=== PATIENT | male | born 1950 | race Caucasian/White ===

== ENCOUNTER 2021-09-13 09:48 | Outpatient (CLI) | payer MEDICARE, SELFPAY ==
--- NOTE | ~2021-09-13 | MR_ITS ---
EXAMINATION: MR lumbar spine wo con DATE: 09/13/2021 10:25 INDICATION: Lumbar radiculopathy. TECHNIQUE: Magnetic resonance imaging (MRI) of the lumbar spine was performed without intravenous con trast. Sequences included sagittal T2-weighted FSE, sagittal T2-weighted FS FSE, sagittal T1-weighted FSE, and axial T2-weighted FSE. COMPARISON: None FINDINGS: 5 mm retrolisthesis L4 on L5 and 4 mm retrolisthesis L5 on S1. Chronic mild anterior wedging at T11-L 1. Severe disc height loss with fibrovascular degenerative endplate changes at L5-S1. Additional fibr ovascular degenerative endplate changes along the posterior endplates at L4-L5 and L2-L3. Marrow sign al is otherwise normal. Moderate disc height loss at T10-T11 and mild disc height loss at T12-L1 thro ugh L4-L5. The conus medullaris terminates at L1. There is normal signal in the caudal spinal cord. P aravertebral soft tissues are unremarkable. The following disc levels are specifically discussed: T12-L1: Disc is minimally bulging. There is mild left and mild to moderate right facet joint osteoart hritis. There is no neural foraminal stenosis. There is no central canal stenosis. L1-L2: Disc is mildly bulging. There is mild to moderate bilateral facet joint osteoarthritis. There is no neural foraminal stenosis. There is no central canal stenosis. L2-L3: Disc is bulging. There is mild bilateral facet joint osteoarthritis. There is mild bilateral n eural foraminal stenosis. There is mild central canal stenosis. L3-L4: Disc is bulging. There is mild to moderate left and moderate right facet joint osteoarthritis. There is mild bilateral neural foraminal stenosis. There is mild central canal stenosis. L4-L5: Disc is bulging with annular fissure. There is mild to moderate bilateral facet joint osteoart hritis. There is moderate bilateral neural foraminal stenosis. There is mild central canal stenosis. L5-S1: Disc is bulging with annular fissure and superimposed central disc extrusion with disc materia l extending a few millimeters cephalad and caudal to the level of the endplates. There is moderate bi lateral facet joint osteoarthritis. There is moderate bilateral neural foraminal stenosis. There is m ild central canal stenosis. IMPRESSION: 1. Lumbar spondylosis, severe at L5-S1 and otherwise mild. Reviewed, dictated and finalized at location B.
== END 2021-09-13 09:49 | disposition home or self-care (01) ==
PROVIDERS: PCP Internal Medicine; Visit Provider Internal Medicine
DX: M54.16 Radiculopathy, lumbar region (principal); M43.06 Spondylolysis, lumbar region
CPT/HCPCS: 72148

== ENCOUNTER 2025-04-29 01:10 | Day surgery (SDC) | payer MEDICARE, SELFPAY ==
[2025-04-13 15:14] VITALS: BMI 23.2
--- NOTE | 2025-04-13 15:32 | PC.NURSE ---
[facility] has started construction of its new state of the art ER which will open Spring 2026. With this, we anticipate parking may be a challenge for some our surgical patients and families. Parking spaces are limited but are available for all Surgical, obstetrics, and ER patients sharing this lot. If you arrive and find you are having a hard time finding a parking space, please note that we understand the challenges, please drive around the hospital and park near Hospital Entrance 1. When you enter this entrance, you can ask a volunteer to direct or take you back to the surgical waiting area to check in. We appreciate everyone?s understanding of these expected challenges while we build for your future. Report to the Outpatient Waiting Room, entrance under the green pavilion located off [address], at time ___6:30AM___ on date __04/29/25____. Planned Procedure Time: ___8:30AM____.? Time changes happen often and if your time is changed the preop area will call you the afternoon before. - You and your visitor will be asked to self-screen and do not enter if you have any COVID symptoms. Please call surgeon if you need to reschedule. - A mask is optional within the hospital at this time. Patients may have clear liquids (water, carbonated beverages, clear teas, apple juice) until 3 hours prior to surgery (5:30AM) with a maximum of 20 ounces. - No food from midnight until time of surgery and no smoking, or chewing tobacco (or any form of nicotine). No chewing gum, candy or mints. Take only the following medications with a SIP of water on the morning of surgery: NONE DO NOT STOP ANY OF YOUR OTHER PRESCRIPTION MEDICATIONS PRIOR TO SURGERY EXCEPT THE FOLLOWING Hold all vitamins and supplements for 3 days per anesthesiologist.-LAST DOSE 04/25/25 Please no make-up, nail serbian, hairspray, perfume, deodorant, or body powder the day of surgery.? No jewelry (including any body piercings) or valuables the day of surgery, leave them at home.? Please take a shower or bath the night before, or the morning of, surgery with an antibacterial soap.? Wear comfortable, loose fitting clothing.? Children are encouraged to wear pajamas. - Jewelry must be removed prior to entering the operating room.? Rings and piercings that are not removed may be cut off. - The hospital will not accept responsibility for valuables.? - Please leave all valuables, including medications, at home the day of surgery. If you are going home after surgery, a licensed commercial driver's license driver must drive you home.? - NO public transportation without another adult if you receive anesthesia. - We recommend that an adult stay with you for 24 hours following discharge. - We also recommend that you do not drive, make important decision, drink alcoholic beverages, or take any drugs that were not prescribed by your health care provider for at least 24 hours after your discharge time. For Pediatric surgeries, we recommend two adults accompany the child home. Follow any additional instructions given to you from your surgeon. Telephone instructions given to ____PATIENT and asked if any additional questions and then verbalized understanding. Patient advised to call surgeon office or pre surgery nurse liaison [phone] if any additional questions.
--- NOTE | 2025-04-28 16:18 | PM.IMHP2 ---
H&P: HPI History of Present Illness Date/Time: 04/28/25 16:18 Chief Complaint: Right carpal tunnel syndrome Narrative: HPI Comments Details: Patient is a 75-year-old gentleman patient of Dr. Lewis who presents for evaluation of numbness and tingling in the thumb index and long fingers of his right hand. He has similar symptoms on the left but much milder. He saw Osman Kat in April of 2023 and I reviewed his note. Patient had undergone MRI of the cervical spine on April 17, 2023 which demonstrated severe canal and left foraminal stenosis at C5-6 and moderate to severe central canal and right foraminal stenosis at C6-7. There was no signal abnormality in the cervical cord. Patient subsequently saw a neurosurgeon [facility] whose name begins with the letter B and was advised after review of the MRI scan of the cervical spine and his complaints that his hand numbness was not related to his cervical spine. At that visit 2 years ago he was prescribed resting night splints. He does not use them consistently because when he is at a point where he was about to fall asleep his usually too sleepy to remember but he notes that he never has the severe numbness in the morning or wakes up at night if he is wearing the splints. He does have lingering tingling constantly in the tips of the thumb index and long fingers of the right hand and a little bit in the ring finger. If he is not wearing the splints, occasionally he will wake up in the middle the night with the entire right hand very numb and the knee shakes it in moves around in as the blood starts flowing to his right hand he experiences pain in those fingers. The most commonly he has this phenomena on awakening in the morning. He denies any numbness other than in the thumb index and long fingers. He notes that when he is trying to use his fingers to button buttons he can not feel when he is doing. Physical examination He has full range of motion of his wrist and digits in the right hand. He has no redness swelling or warmth and no tenderness in any of the joints of the right hand. He had a negative Tinel's and negative carpal tunnel compression test. He had a positive Phalen's maneuver which caused increased tingling in the index long and thumb on the right. Tinel's over the cubital tunnel was negative no subluxation of the ulnar nerve. No obvious thenar atrophy. He has mild intrinsic atrophy perhaps in viewing the dorsum of his hands symmetrically. No obvious weakness. This degree of atrophy may be consistent with age. He has a 2+ radial artery pulse palpable. On light touch testing he noted slight tingling to light touch to in the thumb index and long fingers. He had normal sensation over the radial and dorsal aspects of his hand and forearm. His 2 point discrimination was 5/greater than 8 mm, 5/greater than 8 mm, 7/greater than 8 mm, 5/5 mm and 5/6 mm in the thumb through small fingers. Range of motion of this gentleman's neck was reduced particularly with extension but also to a moderate degree with lateral rotation to the right and the left. He had no discomfort with these maneuvers. Spurling's maneuver cause no dysesthesias in either arm. Negative Lhermitte's. X-rays X-rays of the right wrist obtained in the office demonstrate moderately severe osteoarthritis changes in the 2nd and 3rd metacarpophalangeal joints and no other abnormalities. Assessment and plan 1. Right carpal tunnel syndrome with constant numbness and marked elevation of 2 point discrimination in ulnar halves of the thumb index and long fingers moderate increased 2 point skin in a kirby the radial half of the long finger. 2. Severe C5-6 and moderately severe C6-7 central canal stenosis with right-sided severe neural foraminal narrowing at C6-7 which would affect the C7 nerve root which correlates with the long finger. Provocative maneuvers of his neck cause no neurologic symptoms today. He has had symptoms for the last 2 years. He had normal light touch sensation to the fingers of his right hand 2 years ago. Now he has constant numbness so he has had worsening of median nerve damage. Two years ago he had a positive Tinel's and positive carpal tunnel compression test over the right median nerve in both of these tests are negative now but his phalan's maneuver positive. I have discussed with him the option of proceeding with right carpal tunnel release. I explained that we could consider obtaining an EMG nerve conduction velocity test to see if there are EMG findings suggesting underlying radiculopathy which would prove that he has the so-called double crush syndrome meaning a combination of radiculopathy and carpal tunnel syndrome both contributing to the numbness and tingling symptoms in his right hand. He has seen the neurosurgeon was not recommended surgical decompression for his severe cervical spinal stenosis. Therefore, if the test showed that he does have element of radiculopathy in addition to the carpal tunnel syndrome, proceeding with carpal tunnel release would still be the logical next step to see how much relief this would give him. If he has worsening numbness in the right hand despite carpal tunnel release and if he begins to lose coordination in his hand or develops ataxia he may need to be seen by the neurosurgeon again for a repeat consideration of his severe cervical spinal stenosis treatment options. I have discussed risks of carpal tunnel release surgery with him in detail. I explained that he may not have full return of normal sensation which is common with 2 point discrimination greater than 8 mm but I would expect he would have at least some return of sensation and it is very likely he will have immediate relief from the painful numbness in the morning when he does not wear his night splint and carpal tunnel release will prevent further damage to the median nerve from compression by the transverse carpal ligament. I have discussed risk of infection the nerve injury and explained the recovery to him. In a month or so he is going to be leaving for [place] where he spends the winter not coming back until September. He would like to try to proceed as soon as possible. We will proceed as discussed. He does see Dr. Rosales next week for a regular checkup. [facility] Surgical History Surgical History (Updated 04/12/25 @ 14:39 by Oralia Jo CMA) History of hernia repair History of appendectomy History of knee surgery knee scope Family History Family History Father Family history of Alzheimer's disease Mother Family history of malignant neoplasm of breast in first degree relative Social History Social History (Updated 04/12/25 @ 14:45 by Delilah Carmona CMA) Smoking status: Never smoker Alcohol intake: current Drinks per week: 10 Substance use: never Lack of Transportation: No Lack of Food: Never True Current Housing: I Have Housing Concerned About Future Housing: No Difficulty Paying Gas/Electric Bills: No Difficulty Paying for Meds: No Currently Unemployed: No Education: Master's Degree or Higher Difficulty w/ Childcare or Family Care: No Living arrangements: with family Additional living arrangements comments: Spiritual care concerns: No Meds Home Medications and Allergies Home Medications ?Medication ?Instructions ?Recorded ?Confirmed ?Type multivitamin (Daily Multi-Vitamin 1 tablet PO DAILY 04/13/25 04/13/25 History tablet) Allergies Allergy/AdvReac Type Severity Reaction Status Date / Time No Known Allergies Allergy Mild Verified 04/13/25 15:13
[2025-04-29] VITALS (7 sets, daily range): BP systolic 91–110; BP diastolic 61–73; PULSE 54–66; RESP 14–20; TEMP 36.2–36.5; O2SAT 99–100
--- OUTSIDE RECORDS SUMMARY | 2025-04-29 01:12 | XMS_ITS | Encounter Summary ---
Author Organization [facility] Address [address] [place] [address] Care Team Providers Care Accountant Property Name Role Phone Colby Lewis MD Primary Care Provider [phone] Filippo Wright MD Unavailable [phone] Reason for Visit * Reason Onset Date Comments Appointment 02/19/2025 Encounter Details Date Type Department Care Team (Late st Contact Info) Description 02/19/2025 Telephone [facility] - [address] [place] [address] Alyx Stoddard Appointment Social History Tobacco Use Types Packs/Day Years Used Date Smoking Tobacco: Never Smokeless Tobacco: Never Alcohol Use Standard Drinks/Week Comments Not Currently 12 (1 standard drink = 0.6 oz pu re alcohol) AUDIT-C Answer Date Recorded Q1: How often do you have a drink containing alcohol? 4 or more times a week 05/26/2021 Q2: How many drinks containi ng alcohol do you have on a typical day when you are drinking? 3 or 4 Frequency of Binge Drinking Not on file 11/2021 PHQ-2 Answer Date Recorded PHQ2 TOTAL SCORE 0 12/30/2020 Sex and Gender Information Value Date Recorded Sex Assigned at Not on file Legal Sex Male 10:25 AM LEGAL JOB TITLES Gender Identity Not on file Sexual Orientation Not on file documented as of this encounter Functional Status * Is person deaf or have serious hearing difficulty? Answer Date of Assessment Author No 10/11/2022 9:01 AM CDT Jamar Ricci RN * Is person blind or have serious difficulty seeing? Answer Date of Assessment Author No 10/11/2022 9:01 AM CDT Jamar Ricci RN * Does person have serious difficulty walking/climbing stairs? Answer Date of Assessment Author No 10/11/2022 9:01 AM CDT Jamar Ricci RN * Does person have difficulty dressing/bathing? Answer Date of Assessment Author No 10/11/2022 9:01 AM CDT Jamar Ricci RN * Does person have difficulty doing errands alone? Answer Date of Assessment Author No 10/11/2022 9:01 AM CDT Jamar Ricci RN documented as of this encounter Mental Status * Does person have difficulty concentrating/remembering/making decisions? Answer Entry Date Author No 10/11/2022 9:01 AM ZAKT Jamar Ricci RN documented in this encounter Miscellaneous Notes * Telephone Encounter - Alyx Stoddard - 02/19/2025 11:23 AM CDT 1st/2nd Attempt lvm on self identified vm and sent pt a my chart msg to call to schedule a follow up appt. As requested below. Message Received: 2 days ago Gisella Sabillon, NADINE sent to Adithya Anglin, NADINE; Alyx Stoddard Needs to reestablish care with an IBD specialist Used to see Deonna but she moved He called me Could you work with the schedulers to find him an appt with peter or adrianne?. No acuna at all.. he is asymptomatic documented in this encounter Plan of Treatment Upcoming Encounters Date Type Department Care Team (Latest Contact Info) Description 05/05/2025 9:30 AM [facility] Hospital Encounter [facility] [address] [place] [phone] Bernardo Izquierdo MD [address] [place] [address] Surgery General 05/05/2025 9:30 AM LEGAL JOB TITLES - 05/05/2025 10:15 AM LEGAL JOB TITLES Surgery [facility]COPY [address] [place] [phone] Bernardo Izquierdo MD [address] [place] [address] COLONOSCOPY SCREEN w/ peter 05/26/2025 8:30 AM LEGAL JOB TITLES Office Visit [facility] - GI [address] [facility], [place] [phone] Conigel-Adrianne Martinez, BIOLOGICAL SCIENCE TECHNICIAN-DIRECTOR OF SEARCH ENGINE MARKETING [address] [place] [address] Scheduled Procedures Name Priority Associated Diagnoses Date/Ti sd COLONOSCOPY SCREEN Ulcerative colitis with complication, unspecified location (HCC) 05/05/2025 9:30 AM LEGAL JOB TITLES documented as of this encounter Goals Goal Patient Goal Type Associated Problems Recent Progress Patient-Stated? Author Safety General On track( 9:18 AM CDT) No Nikia Hanley, NADINE Note: Expected end date: Ongoing Interventions: Your nurse will assess your risk for falls/injury each visit Use appropriate and safe transfer methods Medication Management General On track( 9:18 AM CDT) Nikia Pereira, RN Note: Expected end date: Ongoing Interventions: Take all medications as prescribed Let your doctor know right away about any changes in your medications documented as of this encounter Visit Diagnoses Not on filedocumented in this encounter Additional Health Concerns Infection Onset Date Last Indicated Resolved Time CDIFF Under Investigation 03/03/2025 03/03/2025 7:25 PM CDT documented as of this encounter Care Teams Accountant Property Relationship Specialty Start Date End Date Colby Lewis MD [address] [place] [address] [address] [place] [phone] PCP - General Internal Medicine 09/27/16 Filippo Wright MD [address] [address] [address] [place] [address] Anesthesiology-Pain Management 11/06/21 documented as of this encounter
--- OUTSIDE RECORDS SUMMARY | 2025-04-29 01:12 | XMS_ITS | Encounter Summary ---
Author Organization [facility] Address [address] [place] [address] Care Team Providers Care Supervisor Weaving Name Role Phone oClby Lewis MD Primary Care Provider [phone] Filippo Wright MD Unavailable [phone] Reason for Visit * Reason Comments Refill Request Encounter Details Date Type Department Care Team (Late st Contact Info) Description 05/22/2022 Refill [facility] - GI [address] [place] [address], [place] [address] Elsy Ying MD [address] [place] [address] [place] [phone] Refill Request Social History Tobacco Use Types Packs/Day Years Used Date Smoking Tobacco: Never Smokeless Tobacco: Never Alcohol Use Standard Drinks/Week Comments Yes 12 (1 standard drink = 0.6 oz [...] on file Legal Sex Male 10:25 AM QA ARCHITECT Gender Identity Not on file Sexual Orientation Not on file documented as of this encounter Plan of Treatment Upcoming Encounters Date Type Department Care Team (Latest Contact Info) Description 05/05/2025 9:30 AM QA ARCHITECT Hospital Encounter [facility] [address] [place] [address] Bernardo Izquierdo MD [address] [place] [phone] Surgery General 05/05/2025 9:30 AM QA ARCHITECT - 05/05/2025 10:15 AM QA ARCHITECT Surgery [facility] [address] [place] [address] Bernardo Izquierdo MD [address] [place] [phone] COLONOSCOPY SCREEN w/ peter 05/26/2025 8:30 AM QA ARCHITECT Office Visit [facility] - GI [address] [facility] [place] [phone] Adrianne Babin, END WORKER-FINISHING OPERATOR [address] [place] [phone] Scheduled Procedures Name Priority Associated Diagnoses Date/Ti me COLONOSCOPY SCREEN Ulcerative colitis with complication, unspecified location (HCC) 05/05/2025 9:30 AM QA ARCHITECT documented as of this encounter Goals Goal Patient Goal Type Associated Problems Recent Progress Patient-Stated? Author Safety General On track( 025 9:18 AM CDT) Nikia Pereira RN Note: Expected end date: Ongoing Interventions: Your nurse will assess your risk for falls/injury each visit Use appropriate and safe transfer methods Medication Management General On track( 025 9:18 AM CDT) Nikia Pereira RN Note: Expected end date: Ongoing Interventions: Take all medications as prescribed Let your doctor know right away about any changes in your medications documented as of this encounter Visit Diagnoses Not on filedocumented in this encounter Additional Health Concerns Infection Onset Date Last Indicated Resolved Time CDIFF Under Investigation 03/03/2025 03/03/2025 7:25 PM CDT documented as of this encounter Care Teams Supervisor Weaving Relationship Specialty Start Date End Date Colby Lewis MD [facility] [address] [address] PCP - General Internal Medicine 09/27/16 Filippo Wright MD [facility] [address] [address] Anesthesiology-Pain Management 11/06/21 documented as of this encounter
--- OUTSIDE RECORDS SUMMARY | 2025-04-29 01:12 | XMS_ITS | Encounter Summary ---
Author Organization [facility] Address [address] [facility] [place] [address] Care Team Providers Care Joy Operator Name Role Phone Colby Lewis MD Primary Care Provider [phone] Filippo Wright MD Unavailable [phone] Encounter Details Date Type Department Care Team (Late st Contact Info) Description 11/06/2021 Telephone [facility] - GI [address] [facility] [place] [address] Yayd Logan RN Social History Tobacco Use Types Packs/Day Years [...] on file Legal Sex Male 10:25 AM COPPER PLATER Gender Identity Not on file Sexual Orientation Not on file documented as of this encounter Plan of Treatment Upcoming Encounters Date Type Department Care Team (Latest Contact Info) Description 05/05/2025 9:30 AM COPPER PLATER Hospital Encounter [facility] [address] [place] [phone] Bernardo Izquierdo MD [address] [place] [address] Surgery General 05/05/2025 9:30 AM COPPER PLATER - 05/05/2025 10:15 AM COPPER PLATER Surgery [facility] [address] [place] [address] Bernardo Izquierdo MD [address] [place] [address] COLONOSCOPY SCREEN w/ peter 05/26/2025 8:30 AM COPPER PLATER Office Visit [facility] - GI [address] [facility] [place] [phone] Adrianne Babin, RADIO STATION AUDIO ENGINEER-RESIDENTIAL LEASING MANAGER [address] [place] [phone] Scheduled Procedures Name Priority Associated Diagnoses Date/Ti ky COLONOSCOPY SCREEN Ulcerative colitis with complication, unspecified location (HCC) 05/05/2025 9:30 AM COPPER PLATER documented as of this encounter Goals Goal Patient Goal Type Associated Problems Recent Progress Patient-Stated? Author Safety General On track( 9:18 AM CDT) Nikia Pereira, NADINE Note: Expected end date: Ongoing Interventions: [...] documented as of this encounter Care Teams Joy Operator Relationship Specialty Start Date End Date Colby Lewis MD [facility] [address] [address] [place] [address] PCP - General Internal Medicine 09/27/16 Filippo Wright MD [address] [place] [address] [address] [place] [address] Anesthesiology-Pain Management 11/06/21 documented as of this encounter
--- OUTSIDE RECORDS SUMMARY | 2025-04-29 01:12 | XMS_ITS | Clinical Summary ---
Author Organization [facility] Address [address] [place] [id number] Care Team Providers Care Personal Banker Name Role Phone Unavailable Primary Care Provider Unavailabl e Social History Tobacco Use Types Packs/Day Years Used Date Smoking Tobacco: Never Assessed Sex and Gender Information Value Date Recorded Sex Assigned at Not on file Legal Sex Male 7:24 PM CDT Gender Identity Not on file Sexual Orientation Not on file Plan of Treatment Health Maintenance Due Date Last Done Comments Colorectal Cancer Screening Colonoscopy (10 Years) 1950 Hepatitis C 1969 DTaP, Tdap and Td Vaccines ( 1 - Tdap) 1970 Pneumococcal Vaccine: 50+ Ye ars (1 of 1 - PCV) 2001 Zoster Vaccines (1 of 2) 2001 COVID-19 Vaccine ( - 2024-2 6 season) 2025 Influenza Adult (#1) 2025 RSV Immunization or 60+ Years (1 - 1-dose 75+ series) 2026 Hepatitis A Vaccines Aged Out No long er eligible based on patient's age to complete this topic Meningococcal B Vaccine Aged Out No l onger eligible based on patient's age to complete this topic Meningococcal Vaccine Aged Out No catia juany eligible based on patient's age to complete this topic RSV Immunizations Under 20 Months Aged Out No longer eligible based on patient's age to complete this topic
--- OUTSIDE RECORDS SUMMARY | 2025-04-29 01:12 | XMS_ITS | Clinical Summary ---
Author Organization [facility] Address [address] [facility] [place] [address] Care Team Providers Care Manager Of Revenue Name Role Phone Colby Lewis MD Primary Care Provider Filippo Wright MD Unavailable [phone] Source Comments [facility],non-owned Affiliates and Associated Physician Practices is amultiple site organization consisting of ambulatory clinics and hospital sitesin [place], [place], [place] and [place]. This disclosure is being madepursuant to the Care Everywhere program and may not contain all information available regarding this patient. Last updated 18.[facility] Allergies No known active allergies Medications * Be aware that medications may not be up to date on this document. Alwaysverify current medications with the patient. Bismuth Subsalicylate (BISMUTH PO) Take by mouth as needed Active Multiple Vitamins-Minerals (ZINC PO) Take by mouth once daily Active econazole nitrate (Spectazole) 1 % creamIndications:O nychomycosis APPLY TO TOENAILS AND FEET 1 TO 2 TIMES DAILY 30 g 5 4 Active tadalafil (Cialis) 20 MG tablet Take 1 (one) tablet by mouth once daily as needed 5 Active AMINO ACIDS PO Take by mouth once daily Active Protein Take by mouth once daily Active polyethylene glycol (Golytely) solution Drink half of prep solution at 5pm the night before colonoscopy. Finish the prep at 4am the day of test. 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 Actinic keratosis 05/02/2020 H/O nummular eczema 05/02/2020 Onychomycosis 05/02/2020 Lentigines 05/02/2020 Xerosis cutis 05/02/2020 Seborrheic keratosis 05/26/2018 History of nonmelanoma skin cancer 05/26/2018 Joint pain 09/18/2013 Overview (05/02/2020): Overview: Clinic note : mike damon: check RAFFY, uric acid, b12, folate, labs, testosterone tsh 5.64, T4 5.5, vit d 23 07/2013: normal cmp, tsh 7.02, t4 0.9, nl cbc, hep b rodriguez neg, hep c neg, testosterone normal, psa normal 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 Symptoms better with align, dietary changes but positive fecal inflammatorymarkers 2011 Colonoscopy abnormal 05/29/2012: bx at [facility]: TI: no path diagnosis Right colon: acute and CI no dysplasia Left colon: acute and CI, no dysplasia TC: Acute and CI, no dysplasia The colon shows no architectural abnormality ESR 70, CRP negative 04/2012: Stool calprotectin 235, lactoferrin positive 2017: colon: normal colon, erythema in TI, hemorrhoids, diverticulosis Final Diagnosis 1. Ascending colon, biopsy: -- Mild chronic inflammationand crypt atrophy. 2. Terminal ileum, biopsy: -- Moderate acute and chronic inflammation 3. Transverse colon, biopsy: -- Mild chronic inflammation and crypt atrophy 4. Descending colon, biopsy: -- Mild chronic inflammation with thickened subepithelial collagen table 5. Rectosigmoid colon, biopsy: -- Mild chronic inflammation Encounters Date Type Department Care Team Description 04/21/2025 Patient Outreach [facility] [address] [place] [address] Adrianne Mcleod RN 03/03/2025 9:30 AM CDT Office Visit [facility] [address] [place] [phone] Adrianne Babin, ROLLER DIE CUTTING MACHINE OPERATOR-INSURANCE CONSULTANT Ulcerative pancolitis (HCC) (Primary Dx); Intestinal malabsorption, unspecified type (HCC); Immunosuppression due to drug therapy (HCC); Encounter for screening for other viral diseases 03/03/2025 Travel 02/19/2025 Telephone [facility] - [address] [place] [phone] Alyx Stoddard Appointment from Last 3 Months Immunizations Immunization Administration Dates Next Due INFLUENZA VACCINE 03/11/2014 INFLUENZA VACCINE, HIGH-DOSE , QUADR. (FLUZONE HIGH-DOSE QUADRIVALENT; 65Y+), 0.7 ML (HD-IIV4) 03/11/2014 TDAP (7yrs+) 11/28/2017 Family History Medical History Relation Name Comments None Known Brother None Known Father None Known Maternal Aunt None Known Maternal Grandfather None Known Maternal Grandmother None Known Maternal Uncle None Known Mother None Known Paternal Aunt None Known Paternal Grandfather None Known Paternal Grandmother None Known Paternal Uncle None Known Sister Asthma Neg Hx CVA Neg Hx Cancer - Breast Neg Hx Cancer - Other Neg Hx Cancer - Skin, Melanoma Neg Hx Cancer - Skin, Non Melanoma Neg Hx Eczema Neg Hx Hemophilia Neg Hx Psoriasis Neg Hx Relation Name Status Comments Brother Father Maternal Aunt Maternal Grandfather Maternal Grandmother Maternal Uncle Mother Paternal Aunt Paternal Grandfather Paternal Grandmother Paternal Uncle Sister Social History Tobacco Use Types Packs/Day Years Used Date Smoking Tobacco: Never Smokeless Tobacco: Never Alcohol Use Standard Drinks/Week Comments Yes 12 (1 standard drink = 0.6 oz pu re alcohol) 4-5 times per week, beer AUDIT-C Answer Date Recorded Q1: How often [...] on file Legal Sex Male 10:25 AM HOME HEALTH RN Gender Identity Not on file Sexual Orientation Not on file Last Filed Vital Signs Vital Sign Reading Time Taken Comments Blood Pressure 118/82 03/03/2025 9:23 AM CDT Pulse 66 03/03/2025 9:23 AM CDT Temperature 36.6 C (97.9 F) 03/03/2025 9:23 AM CDT Respiratory Rate 15 10/11/2022 9:30 AM CDT Oxygen Saturation 100% 03/03/2025 9:23 AM CDT Inhaled Oxygen Concentration - - Weight 78.7 kg (173 lb 9.6 oz) 03/03/2025 9:23 A M CDT Height 188 cm (6' 2) 03/03/2025 9:23 AM CDT Body Mass Index 22.29 03/03/2025 9:23 AM CDT Plan of Treatment Upcoming Encounters Date Type Department Care Team (Latest Contact Info) Description 05/05/2025 9:30 AM HOME HEALTH RN Hospital Encounter [facility] [address] [place] [address] Bernardo Izquierdo MD [address] [place] [phone] Surgery General 05/05/2025 9:30 AM HOME HEALTH RN - 05/05/2025 10:15 AM HOME HEALTH RN Surgery [facility] [address] [place] [address] Bernardo Izquierdo MD [address] [place] [phone] COLONOSCOPY SCREEN w/ peter 05/26/2025 8:30 AM HOME HEALTH RN Office Visit [facility] - [facility] [address] [facility] [place] [address] Adrianne Babin APRN-INSURANCE CONSULTANT [address] [place] [address] Scheduled Procedures Name Priority Associated Diagnoses Date/Ti me COLONOSCOPY SCREEN Ulcerative colitis with complication, unspecified location (HCC) 05/05/2025 9:30 AM HOME HEALTH RN Health Maintenance Due Date Last Done Comments COLOGUARD (AGES 45-75) - COLON CA SCREENING 1950 CT COLONOGRAPHY - COLON CA SCREENING 1950 FIT - COLON CA SCREENING 1950 FLEX SIG - COLON CA SCREENING 1950 MEDICARE AWV 12 MONTHS 1950 COVID-19 VACCINE (#1) 1956 PNEUMOCOCCAL VACCINE 50+ (1 of 2 - PCV) 1970 ZOSTER VACCINE (1 of 2) 1970 Respiratory Syncytial Virus (RSV) Vaccine Pt: or over 60 yrs (1 - Risk 50-74 years 1-dose series) 2001 LIPID TESTING 06/28/2021 06/28/2016 DEPRESSION SCREENING 05/20/2024 INFLUENZA VACCINE (#1) 2025 03/11/2014, 2013 DTAP/TDAP/TD VACCINES (2 - Td or Tdap) 11/29/2027 11/28/2017 COLON MONITORING 10/11/2032 10/11/2022, , 06/09/2019, Additional history exists COLONOSCOPY - COLON CA SCREENING 10/11/2032 10/11/2022, 10/11/2022, 06/09/2019, Additional history exists Colorectal Cancer Screening 10/11/2032 HEPATITIS C SCREENING Completed 05/27/2019, 020 HEPATITIS B VACCINE Aged Out No longe r eligible based on patient's age to complete this topic HIB VACCINE Aged Out No longer eligi ble based on patient's age to complete this topic HPV VACCINE Aged Out No longer eligi ble based on patient's age to complete this topic MENINGOCOCCAL (Group B) VACCINE SHARED DECISION-MAKING Aged Out No longer eligible based on patient's age to complete this topic MENINGOCOCCAL GROUPS A/C/Y/W VACCINE Aged Out No longer eligible based on patient's age to complete this topic Goals Goal Patient Goal Type Associated Problems Recent Progress Patient-Stated? Author Safety General On track( 025 9:18 AM CDT) No Nikia Hanley RN Note: Expected end date: Ongoing Interventions: Your nurse will assess your risk for falls/injury each visit Use appropriate and safe transfer methods Medication Management General On track( 9:18 AM CDT) No Nikia Hanley RN Note: Expected end date: Ongoing Interventions: Take all medications as prescribed Let your doctor know right away about any changes in your medications Procedures Procedure Name Priority Date/Time Associated Diagnosis Comments HEPATITIS B SURFACE ANTIBODY QUANT Routine 03/19/2025 9:32 AM CDT Ulcerative pancolitis (HCC) Intestinal malabsorption, unspecified type (HCC) Immunosuppression due to drug therapy (HCC) Encounter for screening for other viral diseases HEPATITIS B CORE ANTIBODY TOTAL Routine 03/19/2025 9:31 AM CDT Ulcerative pancolitis (HCC) Intestinal malabsorption, unspecified type (HCC) Immunosuppression due to drug therapy (HCC) Encounter for screening for other viral diseases HEPATITIS B SURFACE ANTIGEN W RFLX CONFIRMATION Routine 03/19/2025 9:31 AM CDT Ulcerative pancolitis (HCC) Intestinal malabsorption, unspecified type (HCC) Immunosuppression due to drug therapy (HCC) Encounter for screening for other viral diseases QUANTIFERON-TB GOLD PLUS 1-TUBE Routine 03/19/2025 9:31 AM CDT Ulcerative pancolitis (HCC) Intestinal malabsorption, unspecified type (HCC) Immunosuppression due to drug therapy (HCC) VITAMIN B12 Routine 03/19/2025 9:31 AM CDT Ulcerative pancolitis (HCC) Intestinal malabsorption, unspecified type (HCC) Immunosuppression due to drug therapy (HCC) VITAMIN D 25-HYDROXY Routine 03/19/2025 9:31 AM CDT Ulcerative pancolitis (HCC) Intestinal malabsorption, unspecified type (HCC) Immunosuppression due to drug therapy (HCC) FOLATE Routine 03/19/2025 9:31 AM CDT Ulcerative pancolitis (HCC) Intestinal malabsorption, unspecified type (HCC) Immunosuppression due to drug therapy (HCC) IRON + TIBC + FERRITIN Routine 9:31 AM CDT Ulcerative pancolitis (HCC) Intestinal malabsorption, unspecified type (HCC) Immunosuppression due to drug therapy (HCC) C-REACTIVE PROTEIN Routine 03/19/2025 9: 31 AM CDT Ulcerative pancolitis (HCC) Intestinal malabsorption, unspecified type (HCC) Immunosuppression due to drug therapy (HCC) COMPREHENSIVE METABOLIC PANEL Routine 03/19/2025 9:31 AM CDT Ulcerative pancolitis (HCC) Intestinal malabsorption, unspecified type (HCC) Immunosuppression due to drug therapy (HCC) CBC W AUTO DIFFERENTIAL Routine 03/19/20 9:31 AM CDT Ulcerative pancolitis (HCC) Intestinal malabsorption, unspecified type (HCC) Immunosuppression due to drug therapy (HCC) GASTROINTESTINAL PATHOGEN PANEL (GPP) PCR Routine 03/19/2025 9:31 AM CDT Ulcerative pancolitis (HCC) Intestinal malabsorption, unspecified type (HCC) Immunosuppression due to drug therapy (HCC) ENDOSCOPY, COLON, SCREENING Routine 10/11/2022 7:26 AM CDT HEPATITIS C ANTIBODY Routine 05/27/2019 12:00 PM HOME HEALTH RN Ulcerative pancolitis without complication Encounter for screening for other viral diseases LIPID PROFILE Routine 06/28/2016 10:17 AM HOME HEALTH RN from Last 3 Months or Most Recently Relevant to Health Maintenance Results * (ABNORMAL) HEPATITIS B SURFACE ANTIBODY QUANT (03/19/2025 9:32 AM CDT) Hepatitis B Virus Surface Antibody Quantitative <3.5(L) Immunity>1 0 mIU/mL [facility] INSURANCE BILL Comment: Status of Immunity Anti-HBs Level Inconsistent with Immunity 0.0 - 10.0 Consistent with Immunity >10.0 Blood BLOOD SPECIMEN / Unknown 03/19/2025 9:32 AM CDT 03/19/2025 Narrative [facility] INSURANCE BILL - 03/20/2025 6:09 AM CDT Performed at: [address] [place] [id number] Review Engineer: Jagdeep Kenyon PhD, Phone: [phone] us Adrianne Babin ROLLER DIE CUTTING MACHINE OPERATOR-INSURANCE CONSULTANT LAB - SEROLOGY O RDERABLES Final Result [facility] INSURANCE BILL [address] [place] [address] * QUANTIFERON-TB GOLD PLUS 1-TUBE (03/19/2025 9:31 AM CDT) [facility] QuantiFERON Incubation Incubation performed. [facility] INSURANCE BILL Quantiferon-TB Gold Plus Negative Negative [facility] INSURANCE BILL Comment: No response to M tuberculosis antigens detected. Infection with M tuberculosis is unlikely, but high risk individuals should be considered for additional testing (ATS/IDSA/CDC Clinical Practice Guidelines, 2017). The reference range is an Antigen minus Nil result of <0.35 IU/mL. Chemiluminescence immunoassay methodology Performed at: [address] [place] [id number] Review Engineer: Jagdeep Kenyon PhD, Phone: [phone] QuantiFERON Criteria Comment [facility] INSURANCE BILL Comment: QuantiFERON-TB Gold Plus is a qualitative indirect test for M tuberculosis infection (including disease) and is intended for use in conjunction with risk assessment, radiography, and other medical and diagnostic evaluations. The QuantiFERON-TB Gold Plus result is determined by subtracting the Nil value from either TB antigen (Ag) value. The Mitogen tube serves as a control for the test. QuantiFERON TB1 Ag Value 0.04 IU/mL [facility] INSURANCE BILL QuantiFERON TB2 Ag Value 0.08 IU/mL [facility] INSURANCE BILL QuantiFERON Nil Value 0.06 IU/mL [facility] INSURANCE BILL QuantiFERON Mitogen Value >10.00 IU/mL [facility] INSURANCE BILL Blood BLOOD SPECIMEN / Unknown 03/19/2025 9:31 AM CDT 03/19/2025 Narrative [facility] INSURANCE BILL - 03/22/2025 1:09 PM HOME HEALTH RN Performed at: 01 - [facility] [address] [place], [place] [id number] Review Engineer: Jagdeep Kenyon PhD, Phone: [phone] Adrianne Rubi-Attewhui ROLLER DIE CUTTING MACHINE OPERATOR-INSURANCE CONSULTANT LAB - CHEMISTRY ORDERABLES Final Result [facility] INSURANCE BILL [address] [place] [address] * GASTROINTESTINAL PATHOGEN PANEL (GPP) PCR (03/19/2025 9:31 AM CDT) Pathologist [facility] Campylobacter PCR Not Detected Not Detected [facility] INSURANCE BILL C difficile Toxin A/B PCR Not Detected Not Detected [facility] INSURANCE BILL Plesiomonas shigelloides PCR Not Detected Not Detected [facility] INSURANCE BILL Salmonella PCR Not Detected Not Detected [facility] INSURANCE BILL Vibrio PCR Not Detected Not Detected [facility] INSURANCE BILL Vibrio cholerae PCR Not Detected Not Detected [facility] INSURANCE BILL Yersinia enterocolitica PCR Not Detected Not Detected [facility] INSURANCE BILL Enteroaggregative E coli (EAEC) PCR Not Detected Not Detected [facility] INSURANCE BILL Enteropathogenic E coli (EPEC) PCR Not Detected Not Detected [facility] INSURANCE BILL Enterotoxigenic E coli (ETEC) PCR Not Detected Not Detected [facility] INSURANCE BILL Shiga-Like Toxin-Producing E coli (STEC) stx1/stx2 Not Detected Not Detected [facility] INSURANCE BILL E coli O157 PCR Not applicable Not Detected [facility] INSURANCE BILL Shigella/Enteroinvas javier E coli PCR Not Detected Not Detected [facility] INSURANCE BILL Cryptosporidium PCR Not Detected Not Detected [facility] INSURANCE BILL Cyclospora cayetanensis PCR Not Detected Not Detected [facility] INSURANCE BILL Entamoeba histolytica PCR Not Detected Not Detected [facility] INSURANCE BILL Giardia lamblia PCR Not Detected Not Detected [facility] INSURANCE BILL Adenovirus F 40/41 Not Detected Not Detected [facility] INSURANCE BILL Astrovirus PCR Not Detected Not Detected [facility] INSURANCE BILL Norovirus GI/GII PCR Not Detected Not Detected [facility] INSURANCE BILL Rotavirus A PCR Not Detected Not Detected [facility] INSURANCE BILL Sapovirus PCR Not Detected Not Detected [facility] INSURANCE BILL Stool STOOL SPECIMEN / Unknown 03/19/2025 9:31 AM CDT 03/19/2025 Narrative [facility] INSURANCE BILL - 03/21/2025 6:42 AM HOME HEALTH RN Performed at: 01 - [address] [id number] Review Engineer: Zachary Gardner MD, Phone: [phone] Adrianne Babin ROLLER DIE CUTTING MACHINE OPERATOR-INSURANCE CONSULTANT LAB - MICROBIOLO GY ORDERABLES Final Result Performing Organization Address [facility] de Phone Number [facility] INSURANCE BILL [address] [place] [address] * (ABNORMAL) IRON + TIBC + FERRITIN (03/19/2025 9:31 AM CDT) TIBC 232(L) 250 - 450 ug/dL [facility] INSURANCE BILL UIBC 144 111 - 343 ug/dL [facility] INSURANCE BILL Iron 88 38 - 169 ug/dL [facility] INSURANCE BILL Iron Saturation 38 15 - 55 % [facility] INSURANCE BILL Ferritin 156 30 - 400 ng/mL [facility] INSURANCE BILL Blood BLOOD SPECIMEN / Unknown 03/19/2025 9:31 AM CDT 03/19/2025 Narrative [facility] INSURANCE BILL - 03/20/2025 8:11 AM CDT [facility]formed at: [facility] [address] [place], [place] [id number] Review Engineer: Jagdeep Kenyon PhD, Phone: [phone] us Adrianne Babin ROLLER DIE CUTTING MACHINE OPERATOR-INSURANCE CONSULTANT LAB - CHEMISTRY ORDERABLES Final Result Performing Organization Address [facility] de Phone Number [facility] INSURANCE BILL [address] [place] [address] * C-REACTIVE PROTEIN (03/19/2025 9:31 AM CDT) C-Reactive Protein 4 0 - 10 mg/L [facility] INSURANCE BILL Blood BLOOD SPECIMEN / Unknown 03/19/2025 9:31 AM CDT 03/19/2025 Narrative [facility] INSURANCE BILL - 03/20/2025 8:11 AM CDT Performed at: [address] [id number] Review Engineer: Jagdeep Kenyon PhD, Phone: [phone] Adrianne Babin ROLLER DIE CUTTING MACHINE OPERATOR-INSURANCE CONSULTANT LAB - CHEMISTRY ORDERABLES Final Result [facility] INSURANCE BILL [address] [place] [address] * VITAMIN D 25-HYDROXY (03/19/2025 9:31 AM CDT) Vitamin D, 25 Hydroxy 37.5 30.0 - 100.0 ng/mL [facility] INSURANCE BILL Comment: Vitamin D deficiency has been defined by the [place] of Medicine and an Endocrine Society practice guideline as a level of serum 25-OH vitamin D less than 20 ng/mL (1,2). The Endocrine Society went on to further define vitamin D insufficiency as a level between 21 and 29 ng/mL (2). 1. IOM ([place] of Medicine). 2010. Dietary reference intakes for calcium and D. [place]: The National Academies Press. 2. Katt MF, Merna GALLEGOS, [place], et al. Evaluation, treatment, and prevention of vitamin D deficiency: an Endocrine Society clinical practice guideline. JCEM. 2010; 96(7):1911-30. Blood BLOOD SPECIMEN / Unknown 03/19/2025 9:31 AM CDT 03/19/2025 Narrative [facility] INSURANCE BILL - 03/20/2025 7:09 AM CDT Performed at: [address] [id number] Review Engineer: Jagdeep Kenyon PhD, Phone: [phone] Adrianne Babin ROLLER DIE CUTTING MACHINE OPERATOR-INSURANCE CONSULTANT LAB - CHEMISTRY ORDERABLES Final Result [facility] INSURANCE BILL [address] [place] [address] * (ABNORMAL) CBC W/ DIFFERENTIAL (03/19/2025 9:31 AM CDT) WBC 7.3 3.4 - 10.8 x10E3/uL [facility] INSURANCE BILL RBC 4.19 4.14 - 5.80 x10E6/uL [facility] INSURANCE BILL Hemoglobin 14.1 13.0 - 17.7 g/dL [facility] INSURANCE BILL Hematocrit 42.5 37.5 - 51.0 % [facility] INSURANCE BILL MCV 101(H) 79 - 97 fL [facility] INSURANCE BILL MCH 33.7(H) 26.6 - 33.0 pg [facility] INSURANCE BILL MCHC 33.2 31.5 - 35.7 g/dL [facility] INSURANCE BILL RDW 12.3 11.6 - 15.4 % [facility] INSURANCE BILL Platelet Count 294 150 - 450 x10E3/uL [facility] INSURANCE BILL Granulocytes % 62 Not Estab. % [facility] INSURANCE BILL Lymphocytes % 23 Not Estab. % [facility] INSURANCE BILL Monocytes % 10 Not Estab. % [facility] INSURANCE BILL Eosinophils % 4 Not Estab. % [facility] INSURANCE BILL Basophils % 1 Not Estab. % [facility] INSURANCE BILL Granulocytes Absolute 4.5 1.4 - 7.0 x10E3/uL [facility] INSURANCE BILL Lymphocytes Absolute 1.7 0.7 - 3.1 x10E3/uL [facility] INSURANCE BILL Monocytes Absolute 0.7 0.1 - 0.9 x10E3/uL [facility] INSURANCE BILL Eosinophils Absolute 0.3 0.0 - 0.4 x10E3/uL [facility] INSURANCE BILL Basophils Absolute 0.1 0.0 - 0.2 x10E3/uL [facility] INSURANCE BILL Immature Granulocytes 0 Not Estab. % [facility] INSURANCE BILL Immature Granulocytes Absolute 0.0 0.0 - 0.1 x10E3/uL [facility] INSURANCE BILL Blood BLOOD SPECIMEN / Unknown 03/19/2025 9:31 AM CDT 03/19/2025 Narrative [facility] INSURANCE BILL - 03/20/2025 7:09 AM CDT Performed at: 01 - [address] [id number] Review Engineer: Jagdeep Kenyon PhD, Phone: [phone] us Adrianne Babin ROLLER DIE CUTTING MACHINE OPERATOR-INSURANCE CONSULTANT LAB - HEMATOLOGY ORDERABLES Final Result [facility] INSURANCE BILL [address] [place] [address] * (ABNORMAL) COMPREHENSIVE METABOLIC PANEL (03/19/2025 9:31 AM CDT) [facility] Glucose 103(H) 70 - 99 mg/dL [facility] INSURANCE BILL BUN 15 8 - 27 mg/dL [facility] INSURANCE BILL Creatinine 1.13 0.76 - 1.27 mg/dL [facility] INSURANCE BILL eGFR by CKD-EPI 69 >59 mL/min/1.7 3 [facility] INSURANCE BILL BUN/Creatinine Ratio 13 10 - 24 [facility] INSURANCE BILL Sodium 140 134 - 144 mmol/L [facility] INSURANCE BILL Potassium 4.4 3.5 - 5.2 mmol/L [facility] INSURANCE BILL Chloride 104 96 - 106 mmol/L [facility] INSURANCE BILL CO2 23 20 - 29 mmol/L [facility] INSURANCE BILL Calcium 8.9 8.6 - 10.2 mg/dL [facility] INSURANCE BILL Protein Total 6.8 6.0 - 8.5 g/dL [facility] INSURANCE BILL Albumin 3.9 3.8 - 4.8 g/dL [facility] INSURANCE BILL Globulin Total 2.9 1.5 - 4.5 g/dL [facility] INSURANCE BILL Bilirubin Total 0.5 0.0 - 1.2 mg/dL [facility] INSURANCE BILL Alkaline Phosphatase 44(L) 47 - 123 IU/L [facility] INSURANCE BILL AST 18 0 - 40 IU/L [facility] INSURANCE BILL ALT 13 0 - 44 IU/L [facility] INSURANCE BILL Blood BLOOD SPECIMEN / Unknown 03/19/2025 9:31 AM CDT 03/19/2025 Narrative [facility] INSURANCE BILL - 03/20/2025 7:09 AM CDT Performed at: 01 - [address] [id number] Review Engineer: Jagdeep Kenyon PhD, Phone: [phone] Adrianne Babin ROLLER DIE CUTTING MACHINE OPERATOR-INSURANCE CONSULTANT LAB - CHEMISTRY ORDERABLES Final Result [facility] INSURANCE BILL [address] [place] [address] * HEPATITIS B CORE ANTIBODY TOTAL (03/19/2025 9:31 AM CDT) Hepatitis B Core Virus Antibody Total Negative Negative [facility] INSURANCE BILL Blood BLOOD SPECIMEN / Unknown 03/19/2025 9:31 AM CDT 03/19/2025 Narrative [facility] INSURANCE BILL - 03/20/2025 7:09 AM CDT Performed at: [address] [id number] Review Engineer: Jagdeep Kenyon PhD, Phone: [phone] us Adrianne Babin ROLLER DIE CUTTING MACHINE OPERATOR-INSURANCE CONSULTANT LAB - CHEMISTRY ORDERABLES Final Result Performing Organization Address [facility]/ZIP Co de Phone Number [facility] INSURANCE BILL [address] [place] [address] * HEPATITIS B SURFACE ANTIGEN W RFLX CONFIRMATION (03/19/2025 9:31 AM CDT) Hepatitis B Virus Surface Antigen Negative Negative [facility] INSURANCE BILL Blood BLOOD SPECIMEN / Unknown 03/19/2025 9:31 AM CDT 03/19/2025 Narrative [facility] INSURANCE BILL - 03/20/2025 7:09 AM CDT Performed at: [address] [id number] Review Engineer: Jagdeep Kenyon PhD, Phone: [phone] us Adrianne Babin ROLLER DIE CUTTING MACHINE OPERATOR-INSURANCE CONSULTANT LAB - CHEMISTRY ORDERABLES Final Result Performing Organization Address City/[facility]/ZIP Co de Phone Number [facility] INSURANCE BILL [address] [place] [address] * FOLATE (03/19/2025 9:31 AM CDT) [facility] Folate 12.2 >3.0 ng/mL [facility] INSURANCE BILL Comment: A serum folate concentration of less than 3.1 ng/mL is considered to represent clinical deficiency. Blood BLOOD SPECIMEN / Unknown 03/19/2025 9:31 AM CDT 03/19/2025 Narrative [facility] INSURANCE BILL - 03/20/2025 9:10 AM CDT Performed at: [address] [place] [id number] Review Engineer: Jagdeep Kenyon PhD, Phone: [phone] Adrianne Babin ROLLER DIE CUTTING MACHINE [facility] LAB - CHEMISTRY ORDERABLES Final Result Performing Organization Address [facility] Phone Number [facility] INSURANCE BILL [address] [place] [address] * VITAMIN B12 (03/19/2025 9:31 AM CDT) [facility] Vitamin B12 419 232 - 1,245 pg/mL [facility] [facility] INSURANCE BILL Blood BLOOD SPECIMEN / Unknown 03/19/2025 9:31 AM CDT 03/19/2025 Narrative [facility] INSURANCE BILL - 03/20/2025 8:11 AM CDT Performed at: [address] [id number] Review Engineer: Jagdeep Kenyon PhD, Phone: [phone] Adrianne Babin ROLLER DIE CUTTING MACHINE [facility] - CHEMISTRY ORDERABLES Final Result Performing Organization Address [facility] Co de Phone Number [facility] INSURANCE BILL [address] [place] [address] * ENDOSCOPY, COLON, SCREENING (10/11/2022 7:26 AM CDT) [facility] Report Endoscopy POC Endoscopy Department Report _ Patient Name: Joseph Alex Procedure Date: 10/11/2022 7:26 AM Date of : 1950 Classification: Outpatient Gender: Male Ethnicity: Not or Race: White _ Providers: Elsy Ying MD, Brandon Bauer (Fellow) Referring MD: Colby Lewis MD (Referring MD) Procedure: Colonoscopy Indications: Follow-up of ulcerative colitis Medications: Monitored Anesthesia Care Patient Profile: UC since 2011, intermittent budesonide Description of Procedure: Pre-Anesthesia Assessment: - Prior to the procedure, a History and Physical was performed, and patient medications and allergies were reviewed. The patient's tolerance of previous anesthesia was also reviewed. The risks and benefits of the procedure and the sedation options and risks were discussed with the patient. All questions were answered, and informed consent was obtained. Prior Anticoagulants: The patient has taken no anticoagulant or antiplatelet agents. ASA Grade Assessment: III - A patient with severe systemic disease. After reviewing the risks and benefits, the patient was deemed in satisfactory condition to undergo the procedure. After I obtained informed consent, the scope was passed under direct vision. Throughout the procedure, the patient's blood pressure, pulse, and oxygen saturations were monitored continuously. The Colonoscope was introduced through the anus and advanced to the cecum, identified by appendiceal orifice and ileocecal valve. The colonoscopy was performed without difficulty. The patient tolerated the procedure well. The quality of the bowel preparation was good. The ileocecal valve, appendiceal orifice, and rectum were photographed. Findings: The perianal and digital rectal examinations were normal. Inflammation characterized by very subtle nodularity and increased vascularity was found in a continuous and circumferential pattern from the rectum to the cecum. The inflammation was mild in severity. Biopsies were taken with a cold forceps for histology in a four quadrant fashion every 10 centimeters. A few 2 mm polyps (? inflammatory) was found in the cecum. The polyp was sessile. The polyp was removed with a jumbo cold forceps. Resection and retrieval were complete. Internal hemorrhoids were found during retroflexion. Estimated Blood Loss: Estimated blood loss: none. Complications: No immediate complications. Impression: - Ulcerative colitis. Inflammation was found from the rectum to the cecum. This was mild in severity. Biopsied. - One 2 mm polyp in the cecum, removed with a jumbo cold forceps. ? Inflammatory polyp. Resected and retrieved. - Internal hemorrhoids. Recommendation: - Resume previous diet. - Continue present medications. - Await pathology results. - Return to GI clinic. - Repeat colonoscopy is recommended for surveillance. The colonoscopy date will be determined after pathology results from today's exam become available for review. Attending Participation: I was present and participated during the entire procedure, including non-mendez portions. Procedure Code(s): --- Professional --- 20649, Colonoscopy, flexible; with biopsy, single or multiple Diagnosis Code(s): --- Professional --- K51.90, Ulcerative colitis, unspecified, without complications D12.0, Benign neoplasm of cecum K64.8, Other hemorrhoids CPT copyright 2021 [employer]. All rights reserved. The codes documented in this report are preliminary and upon antique refinisher review may be revised to meet current compliance requirements. ____ Elsy Ying MD 10/11/2022 8:58:25 AM Note Initiated On: 10/11/2022 7:26 AM Number of Addenda: [address] [id number] [facility] 10/11/2022 7:26 AM CDT us Elsy Ying MD GI PROCEDURE ORDERABLES Ed ited Result - Final [facility] EM[facility]ENC[facility] * HEPATITIS C ANTIBODY (05/27/2019 12:00 PM HOME HEALTH RN) Hepatitis C Antibody NOT NEEDED s/co ratio [facility] INSURANCE BILL Comment: Please refer to the following specimen for additional lab results. SEE [id number] Negative: < 0.8 Indeterminate: 0.8 - 0.9 Positive: > 0.9 . The CDC recommends that a positive HCV antibody result be followed up with a HCV Nucleic Acid Amplification test (854333). Ancillary determined the test is not needed. Blood BLOOD SPECIMEN / Unknown 05/27/2019 12:00 PM HOME HEALTH RN 05/28/2019 Narrative [facility] INSURANCE BILL - 05/28/2019 1:08 PM HOME HEALTH RN Specimen Status Report Specimen Status Report Please refer to the following specimen for additional lab results. TEST: [id number] CBC With Differential/Platelet [id number] Comp. Metabolic Panel ([id number]) [id number] HCV Antibody SEE [id number] Resulting Agency Comment Lab Testing performed at: [facility] [address] [facility] [id number] Elsy Ying MD LAB - CHEMISTRY ORDERABLES Final Result [facility] [address] [place] [address] * LIPID PROFILE (06/28/2016 10:17 AM HOME HEALTH RN) Cholesterol Total 160 125 - 200 mg/dL [facility] HDL 49 > OR = 40 mg/dL [facility] Triglycerides 64 <150 mg/dL [facility] LDL Calculated 98 <130 mg/dL (calc) [facility] Comment: Desirable range <100 mg/dL for patients with CHD or diabetes and <70 mg/dL for diabetic patients with known heart disease. Chol/HDL Ratio 3.3 < OR = 5.0 (calc) [facility] Non HDL Cholesterol 111 mg/dL (calc) [facility] Comment: Target for non-HDL cholesterol is 30 mg/dL higher than LDL cholesterol target. Test Performed at: [email or web address] [address] [place] [address] GUMARO AZAR DO,MPH 06/28/2016 10:1 7 AM HOME HEALTH RN 06/28/2016 10:18 AM HOME HEALTH RN Colby Lewis MD LAB - CHEMISTRY ORDERABLES Edited Result - Final [facility] I) [address] [place], [place] [address] from Last 3 Months or Most Recently Relevant to Health Maintenance Insurance MEDICARE MEDICARE MEDICARE Care Teams Manager Of Revenue Relationship Specialty Start Date End Date Colby Lewis MD [address] [address] [address] [place] [address] PCP - General Internal Medicine 09/27/16 Filippo Wright MD [address] [address] [address] [place] [address] Anesthesiology-Pain Management 11/06/21
--- OUTSIDE RECORDS SUMMARY | 2025-04-29 01:12 | XMS_ITS | Encounter Summary ---
Author Organization [facility] Address [address] [facility] 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 Answer Date of Assessment Author No 10/11/2022 9:01 AM CDJamar Perez RN * Is person blind or have serious difficulty seeing? Answer Date of Assessment Author No 10/11/2022 9:01 AM Jamar Moreland RN * Does person have serious difficulty walking/climbing stairs? Answer Date of Assessment Author No 10/11/2022 9:01 AM Jamar Moreland RN * Does person have difficulty dressing/bathing? Answer Date of Assessment Author No 10/11/2022 9:01 AM Jamar Moreland RN * Does person have difficulty doing errands alone? Answer Date of Assessment Author No 10/11/2022 9:01 AM Jamar Moreland RN documented as of this encounter Mental Status * Does person have difficulty concentrating/remembering/making decisions? Answer Entry Date Author No 10/11/2022 9:01 AM Jamar Moreland RN documented in this encounter Miscellaneous Notes * Telephone Encounter - Gisella Sabillon RN - 04/28/2025 2:09 PM CST Pt confirmed procedure appointment for colonoscopy at [facility] on 05/05/2025 at 0930am,. Verbalizedunderstanding of prep instructions including NPO after midnight. Will arrive 1 hour prior to procedure time. 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 This pt is not taking blood thinning medications. Reminded to take all regular medications as scheduled leading up to procedure and to take all heart and any BP meds he/she might be on in the morning of test with a sip of water. Has prep. SSING PRESS OPERATOR APPRENTICE documented in this encounter Plan of Treatment Upcoming Encounters Date Type Department Care Team (Latest Contact Info) Description 05/05/2025 9:30 AM EMBOSSING PRESS OPERATOR APPRENTICE Hospital Encounter [facility] ENDOSCOPY [address] [place] [phone] Bernardo Izquierdo MD [address] [place] [phone] Surgery General 05/05/2025 9:30 AM EMBOSSING PRESS OPERATOR APPRENTICE - 05/05/2025 10:15 AM EMBOSSING PRESS OPERATOR APPRENTICE Surgery [facility]OSCOPY [address] [place] [phone] Bernardo Izquierdo MD [address] [place] [phone] COLONOSCOPY SCREEN w/ peter 05/26/2025 8:30 AM EMBOSSING PRESS OPERATOR APPRENTICE Office Visit [facility] - GI [address] [facility] [place] [phone] Greyson-Adrianne Martinez, PARISH VISITOR-EXPLOSIVE SPECIALIST [address] [place] [phone] Scheduled Procedures Name Priority Associated Diagnoses Date/Ti me COLONOSCOPY SCREEN Ulcerative colitis with complication, unspecified location ([facility]) 05/05/2025 9:30 AM EMBOSSING PRESS OPERATOR APPRENTICE documented as of this encounter Goals Goal [...] NADINE Note: Expected end date: Ongoing Interventions: Take all medications as prescribed Let your doctor know right away about any changes in your medications documented as of this encounter Visit Diagnoses Not on filedocumented in this encounter Care Teams Wood Gouger Relationship Specialty Start Date End Date Colby Lewis MD [address] [place] [phone] PCP - General Internal Medicine 09/27/16 Filippo Wright MD [address] [place] [phone] Anesthesiology-Pain Management 11/06/21 documented as of this encounter
--- OUTSIDE RECORDS SUMMARY | 2025-04-29 01:12 | XMS_ITS | Encounter Summary ---
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 Answer Entry Date Author No 10/11/2022 9:01 AM [facility] Jamar Ricci RN documented in this encounter Miscellaneous Notes * Telephone Encounter - Amna Hardy - 12/30/2024 9:35 AM CDT Pt called because of a coding issue which is giviing him an issue with his bill. documented in this encounter Plan of Treatment Upcoming Encounters Date Type Department Care Team (Latest Contact Info) Description 05/05/2025 9:30 AM [facility] Hospital Encounter [facility] ENDOSCOPY [address] [place] [address] Bernardo Izquierdo MD [address] [place] [phone] Surgery General 05/05/2025 9:30 AM CABLE ASSEMBLER - 05/05/2025 10:15 AM [facility] Surgery [facility]COPY [address] [place] [address] Bernardo Izquierdo MD [address] [place] [phone] COLONOSCOPY SCREEN w/ shmais 05/26/2025 8:30 AM CABLE ASSEMBLER Office Visit [facility] - GI [address] [facility], [place] [phone] Greyson-Adrianne Martinez, CUSTOMER SALES SPECIALIST-TATTOO AND BODY ARTIST [address] [place] [phone] Scheduled Procedures Name Priority Associated Diagnoses Date/Ti me COLONOSCOPY SCREEN Ulcerative colitis with complication, unspecified location ([facility]) 05/05/2025 9:30 AM CABLE ASSEMBLER documented as of this encounter Goals Goal Patient Goal Type Associated Problems Recent Progress Patient-Stated? Author Safety General On track( 9:18 AM CDT) No Nikia Hanley, RN Note: Expected end date: Ongoing Interventions: [...] documented as of this encounter Care Teams Registered Travel Nurse Relationship Specialty Start Date End Date Colby Lewis MD [address] [phone] PCP - General Internal Medicine 09/27/16 Filippo Wright MD [address] [place] [phone] Anesthesiology-Pain Management 11/06/21 documented as of this encounter
[2025-04-29] MEDS: ACETAMINOPHEN 500 MG TABLET 1000 MG PO (12:00)
[2025-04-29] MEDS: LACTATED RINGERS 1,000 ML 30 ML IV CONT (12:10)
[2025-04-29] MEDS: KETOROLAC 15 MG/ML VIAL (*BKC) IV PUSH (12:11)
--- NOTE | 2025-04-29 12:44 | WPDHPUPDATE1 ---
History and Physical Update Update Date/Time: 04/29/25 12:44 History and Physical has been reviewed, including an updated exam of the patient. There are NO changes in the patient's condition. Risks, benefits, and alternatives have been discussed and questions answered. Patient agrees to proceed with procedure.
--- NOTE | 2025-04-29 12:51 | WPDANESEPPF ---
Anes - Initial Pre Proc Eval Procedure: Operation Date: 04/29/25 13:00 Proposed Procedures p Right Carpal Tunnel Release - Perico Hall MD Date/Time: 04/29/25 12:51 Surgeon: Perico Hall MD Pre Op Diagnosis: right carpal tunnel syndrome Patient Data Age: 75 Gender: M Height: 1.85 m Weight: 80.8 kg Last Vital Signs Temp 97.7 F 04/29/25 11:15 Pulse 66 04/29/25 11:15 Resp 16 04/29/25 11:15 BP 110/67 04/29/25 11:15 Pulse Ox 100 04/29/25 11:15 O2 Del Method Room Air 04/29/25 11:15 Allergies Allergy/AdvReac Type Severity Reaction Status Date / Time No Known Allergies Allergy Mild Verified 04/29/25 12:36 Home Medications ?Medication ?Instructions ?Recorded ?Confirmed ?Type multivitamin (Daily Multi-Vitamin 1 tablet PO DAILY 04/13/25 04/29/25 History tablet) Patient hx anesthesia problems: none Family hx anesthesia problems: none Results Review: All pre-operative results and documents have been reviewed as part of the pre-operative evaluation. [facility] Surgical History Surgical History (Updated 04/12/25 @ 14:39 by Oralia Jo CMA) History of hernia repair History of appendectomy History of knee surgery knee scope Family History Family History Father Family history of Alzheimer's disease Mother Family history of malignant neoplasm of breast in first degree relative Social History Social History (Updated 04/12/25 @ 14:45 by Delilah Carmona MANAGER OF REVENUE) Smoking status: Never smoker Alcohol intake: current Drinks per week: 10 Substance use: never Lack of Transportation: No Lack of Food: Never True Current Housing: I Have Housing Concerned About Future Housing: No Difficulty Paying Gas/Electric Bills: No Difficulty Paying for Meds: No Currently Unemployed: No Education: Master's Degree or Higher Difficulty w/ Childcare or Family Care: No Living arrangements: with family Additional living arrangements comments: Spiritual care concerns: No Anes - Eval Final PreProcedure Day of Procedure 04/29/25 12:51 Patient weight: normal Heart: regular rate and rhythm Lungs: clear to auscultation Airway: Mallampati scale class II Neurological: alert and oriented Last oral intake: >/= 8 hours ASA classification: II Emergent: no Anesthetic plan: proceed Anesthesia type and monitoring: general LMA and standard monitoring Results Review: All pre-operative results and documents have been reviewed as part of the pre-operative evaluation. Informed Consent: The patient's anesthetic plan and its attendant risks and benefits were discussed with the patient/family/POA. Questions were solicited and answers provided to the satisfaction of the patient/family/POA.
[2025-04-29] MEDS: ceFAZolin 2 GM in SODIUM CHLORIDE 0.9% IV 50 ML 100 ML IVPB (13:07)
[2025-04-29] MEDS: LIDOCAINE 1% LOCAL INJ 10 ML VIAL 4 ML INFILTRATE (13:22)
--- NOTE | 2025-04-29 13:38 | W.PM.PROC2 ---
Procedure Note - Detailed Date of Procedure 04/29/25 Pre-op Diagnosis right carpal tunnel syndrome Post-op Diagnosis Same Procedure Performed Right carpal tunnel release Surgeon Perico Hall MD Placement Interviewer Shey Anesthesia General Description of Procedure Right carpal tunnel release Patient was brought to the operating room and general anesthesia was administered. He received 2 g of Ancef preoperatively. The right arm was prepped draped usual fashion. Local anesthesia was administered with 4 cc of plain 1% lidocaine. A 2 cm longitudinal incision was marked at the base of the palm in line with the radial border the 4th ray. Limb was exsanguinated and tourniquet elevated to 225 mmHg. A 2 cm longitudinal incision was made the base of the palm. Dissection was carried down through the superficial palmar fascia to the transverse carpal ligament in the ulnar aspect the transverse carpal ligament was longitudinally incised. Complete release was achieved distally. Proximally the subcutaneous fat was elevated off the distal volar forearm fascia and a [place] elevator passed underneath the fascia from the underlying nerve. The fascia was split for a distance of 3 cm distal to the flexor crease of the wrist completed the decompression. The nerve was inspected and looked unremarkable. Tourniquet was released hemostasis was achieved wound irrigated and closed with 4-0 nylon suture a soft bulky dressing applied the patient transferred to postop recovery room stable condition. [facility] Billing Surgery - Charge Forward: Surgery Billing (Right carpal tunnel release)
== END 2025-04-29 14:50 | disposition home or self-care (01) ==
PROVIDERS: PCP Internal Medicine; Visit Provider Orthopaedic Surgery
PROC: (CPT 64721; principal; 2025-04-29 13:00)
DX: G56.01 Carpal tunnel syndrome, right upper limb (principal)
CPT/HCPCS: 64721; J0690; A9270; J1596; J1885; J2003; J2371; J2405; J2704; J3010; J7120